=== PATIENT | female | born 1990 | race Hispanic/Latino ===

== ENCOUNTER 2019-07-21 04:06 | Emergency (ER) | payer MEDICAID, OTHER ==
[2019-07-21] MEDS ORDERED: ONDANSETRON HCL 4 MG/2 ML VIAL ONE (04:25)
[2019-07-21] MEDS ORDERED: SODIUM CHLORIDE 0.9% 1000ML 1,000 ML IV ONE ×2 (04:29→04:53)
[2019-07-21 04:35] LABS: BASOPHILS % (AUTO) 1.1 % (0.0-5.0); EOSINOPHILS % (AUTO) 0.3 % (0.0-8.0); HEMATOCRIT 41.8 % (36-48); LYMPHOCYTES % (AUTO) 28.9 % (21.0-51.0); MEAN CORPUSCULAR HEMOGLOBIN 29.7 pg (27.0-33.0); MEAN CORPUSCULAR HGB CONC 33.7 g/dL (32.0-36.0); MONOCYTES % (AUTO) 7.3 % (3.0-13.0); NEUTROPHILS % (AUTO) 62.4 % (40.0-77.0); NUCLEATED RED BLOOD CELLS 0.1 % (0.0-0.19); PLATELET COUNT (AUTO) 354 K/uL (130-400); RED BLOOD CELL COUNT(AUTO) 4.75 MIL/uL (4.00-5.50); RED CELL DISTRIBUTION WIDTH 13.3 % (11.0-15.5); WHITE BLOOD COUNT (AUTO) 8.9 K/uL (4.8-10.8)
[2019-07-21 04:44] LABS: CREATININE 0.9 mg/dL (0.5-1.5); POTASSIUM 3.3 mmol/L (3.5-5.1)
[2019-07-21 04:49] LABS: ALBUMIN 4.5 g/dL (3.5-5.0); BILIRUBIN,TOTAL 0.5 mg/dL (0.2-1.0); TOTAL PROTEIN, SERUM 8.1 g/dL (6.0-8.3)
[2019-07-21] MEDS ORDERED: METOCLOPRAMIDE 10 MG/2 ML VIAL ONE (04:52)
[2019-07-21] MEDS ORDERED: DiphenhydrAMINE HCL 50 MG/ML VIAL ONE (04:52)
[2019-07-21] MEDS ORDERED: FAMOTIDINE/PF 20 MG/2 ML VIAL IV ONE (04:53)
== END 2019-07-21 06:12 | disposition home or self-care (01) ==
LOC: EDH 04:06
DX: E86.9 Volume depletion, unspecified (principal); R10.13 Epigastric pain; R11.2 Nausea with vomiting, unspecified; Z90.49 Acquired absence of other specified parts of digestive tract
CPT/HCPCS: 36415; 80053; 83690; 85025; 96361; 96374; 96375; 99285; J1200; J2405; J2765; J3490; J7030 ×2

== ENCOUNTER 2020-06-10 20:12 | Emergency (ER) | payer SELFPAY ==
[2020-06-10] MEDS ORDERED: DEXAMETHASONE SOD PHOSPHATE 10MG/ML 1ML VIAL ONE (20:52)
[2020-06-10] MEDS ORDERED: KETOROLAC TROMETHAMINE 30MG/ML ONE (20:52)
== END 2020-06-10 23:09 ==
LOC: EDH 20:12
DX: R10.32 Left lower quadrant pain (principal); Z90.49 Acquired absence of other specified parts of digestive tract; Z72.0 Tobacco use
CPT/HCPCS: 36415; 74176; 80053; 81003; 81025; 85025; 96374; 96375; 99284; J1100; J1885

== ENCOUNTER 2020-10-12 23:41 | Emergency (ER) | payer OTHER ==
[2020-10-13] MEDS ORDERED: KETOROLAC TROMETHAMINE 60 MG/2 ML VIAL ONE
[2020-10-13] MEDS ORDERED: L.E.T. GEL 4%/0.5%/0.18% 3ML 3 ML/SYR SYG TP ONE (00:06)
[2020-10-13] MEDS ORDERED: CEPHALEXIN 500 MG CAPSULE ONE (00:54)
[2020-10-13] MEDS ORDERED: LIDOCAINE HCL 1% 20 ML VIAL ONE (00:54)
[2020-10-13] MEDS ORDERED: NEOMY SULF/BACITRA/POLYMYXIN B 1 EACH PACKET TP ONE (01:14)
== END 2020-10-13 01:37 | disposition home or self-care (01) ==
LOC: EDH 23:41
DX: S67.195A Crushing injury of left ring finger, initial encounter (principal); F41.9 Anxiety disorder, unspecified; Z90.49 Acquired absence of other specified parts of digestive tract; W23.0XXA Caught, crushed, jammed, or pinched between moving objects, initial encounter; Y93.89 Activity, other specified; Y92.098 Other place in other non-institutional residence as the place of occurrence of the external cause; Y99.8 Other external cause status
CPT/HCPCS: 29130; 73140; 96372; 99283; J1885

== ENCOUNTER 2020-12-19 07:32 | Emergency (ER) | payer OTHER ==
[2020-12-19] MEDS ORDERED: SODIUM CHLORIDE 0.9% 1000ML 1,000 ML IV ONE (07:46)
[2020-12-19] MEDS ORDERED: ONDANSETRON HCL 4 MG/2 ML VIAL ONE (07:46)
[2020-12-19] MEDS ORDERED: MAG HYDROX/AL HYDROX/SIMETH ES 30 ML SUSP UDCUP ONE (07:49)
[2020-12-19] MEDS ORDERED: LIDOCAINE HCL 2% VISCOUS 15 ML UDCUP ONE (07:49)
[2020-12-19 07:53] LABS: BASOPHILS % (AUTO) 1.2 % (0.0-5.0); EOSINOPHILS % (AUTO) 0.9 % (0.0-8.0); HEMATOCRIT 43.5 % (36-48); LYMPHOCYTES % (AUTO) 24.5 % (21.0-51.0); MEAN CORPUSCULAR HEMOGLOBIN 29.2 pg (27.0-33.0); MEAN CORPUSCULAR HGB CONC 33.3 g/dL (32.0-36.0); MEAN CORPUSCULAR VOLUME 87.7 fL (79-99); MONOCYTES % (AUTO) 3.9 % (3.0-13.0); NEUTROPHILS % (AUTO) 69.2 % (40.0-77.0); PLATELET COUNT (AUTO) 358 K/uL (130-400); RED BLOOD CELL COUNT(AUTO) 4.96 MIL/uL (4.00-5.50); RED CELL DISTRIBUTION WIDTH 12.3 % (11.0-15.5); WHITE BLOOD COUNT (AUTO) 7.8 K/uL (4.8-10.8)
[2020-12-19 08:11] LABS: ALBUMIN 4.1 g/dL (3.5-5.0); BILIRUBIN,TOTAL 0.5 mg/dL (0.2-1.0); CREATININE 0.9 mg/dL (0.5-1.5); POTASSIUM 4.1 mmol/L (3.5-5.1); TOTAL PROTEIN, SERUM 7.9 g/dL (6.0-8.3)
[2020-12-19] MEDS ORDERED: HALOPERIDOL LACTATE 5 MG/ML VIAL ONE (10:35)
== END 2020-12-19 11:16 | disposition left against medical advice (07) ==
LOC: EDH 07:32
DX: R10.84 Generalized abdominal pain (principal); Z20.828 Contact with and (suspected) exposure to other viral communicable diseases; F41.9 Anxiety disorder, unspecified; Z72.0 Tobacco use
CPT/HCPCS: 36415; 71045; 80053; 83690; 84484; 84702; 85025; 87426; 93005; 96361; 96374; 96375; 99285; J1630; J2405; J7030; 81001

== ENCOUNTER 2021-05-23 13:07 | Emergency (ER) | payer OTHER ==
[~2021-05-23] VITALS: Ht 165.1 cm; Wt 104.3 kg
[2021-05-23 13:08] VITALS: BP 99/68
[2021-05-23] MEDS ORDERED: LIDOCAINE HCL 2% VISCOUS 15 ML UDCUP PO ONE (13:45)
[2021-05-23] MEDS ORDERED: FAMOTIDINE 20MG VIAL IV ONE (13:45)
[2021-05-23] MEDS ORDERED: ONDANSETRON 4MG INJ IVP ONE (13:45)
[2021-05-23 14:00] LABS: BASOPHILS % (AUTO) 0.7 % (0.0-5.0); HEMATOCRIT 38.8 % (36-48); LYMPHOCYTES % (AUTO) 20.6 % (21.0-51.0); MEAN CORPUSCULAR HGB CONC 31.7 g/dL (32.0-36.0); MEAN CORPUSCULAR VOLUME 88.4 fL (79-99); MONOCYTES % (AUTO) 6.5 % (3.0-13.0); NEUTROPHILS % (AUTO) 67.7 % (40.0-77.0); PLATELET COUNT (AUTO) 280 K/uL (130-400); RED BLOOD CELL COUNT(AUTO) 4.39 MIL/uL (4.00-5.50); RED CELL DISTRIBUTION WIDTH 13.1 % (11.0-15.5)
[2021-05-23 14:09] LABS: CREATININE 0.8 mg/dL (0.5-1.5)
[2021-05-23 14:14] LABS: ALBUMIN 3.5 g/dL (3.5-5.0); BILIRUBIN,TOTAL 0.5 mg/dL (0.2-1.0); TOTAL PROTEIN, SERUM 6.6 g/dL (6.0-8.3)
[2021-05-23] MEDS ORDERED: MAG/ALUM/SIMETH 30 ML UDCUP ONE (14:22)
[2021-05-23 14:39] LABS: APPEARANCE,URINE Clear (CLEAR); BILIRUBIN,URINE Negative (NEGATIVE); COLOR,URINE Yellow (YELLOW); GLUCOSE, URINE (UA) Negative (NEGATIVE); KETONES,URINE Negative (NEGATIVE); LEUKOCYTE ESTERASE ,URINE Negative (NEGATIVE); NITRATE,URINE Negative (NEGATIVE); OCCULT BLOOD,URINE Moderate (NEGATIVE); PH,URINE 6.5 (5.0-8.0); PROTEIN,URINE Negative (NEGATIVE)
[2021-05-23 14:50] LABS: RBC,URINE 0-1 /HPF (0-1); WBC,URINE 0-1 /HPF (0-1)
[2021-05-23 14:51] LABS: BACTERIA,URINE Rare /HPF (None Seen); SQUAMOUS EPITHELIAL CELL,UR Few /HPF (0-2)
[2021-05-23 14:57] VITALS: BP 109/51
[2021-05-23 15:04] LABS: HCG,QUAL RESULT NEGATIVE (NEGATIVE)
[2021-05-23] MEDS ORDERED: DICY20TA2 PO (17:13)
[2021-05-23] MEDS ORDERED: FAMO-136 PO (17:13)
[2021-05-23 17:16] VITALS: BP 122/63
== END 2021-05-23 17:20 | disposition home or self-care (01) ==
LOC: EDH 13:07
DX: K29.70 Gastritis, unspecified, without bleeding (principal); Z90.49 Acquired absence of other specified parts of digestive tract
CPT/HCPCS: 36415; 74176; 80053; 81001; 81025; 83690; 84484; 85025; 93005; 96374; 96375; 99285; J2405; J3490

== ENCOUNTER 2024-02-07 06:48 | Day surgery (SDC) | payer MEDICAID ==
[~2024-02-07] VITALS: Ht 165.1 cm; Wt 123.4 kg
[~2024-02-07 06:48] MED LIST: DICY20TA2 PO; FAMO-136 PO; FEXO1TAB5 PO; OMEP40CA21 PO
[2024-02-07 07:05] VITALS: BP 109/66; PULSE 68; RESP 18
[2024-02-07] MEDS: 0.9%NACL 1000ML 1,000 ML IV ONE (07:26)
[2024-02-07] MEDS ORDERED: FENTANYL CITRATE PF 50 MCG/1 ML 2ML VIAL ONE (07:55)
[2024-02-07] MEDS ORDERED: PROPOFOL 10 MG/ML 20ML VIAL IV ONE ×2 (07:55)
[2024-02-07] MEDS ORDERED: LIDOCAINE PF 100MG/5ML (2%) SYRINGE 5ML ONE (07:56)
== END 2024-02-07 08:41 | disposition home or self-care (01) ==
LOC: DAH 06:48 → ENDO 06:48
PROVIDERS: ATTEND Surgery
DX: K21.9 Gastro-esophageal reflux disease without esophagitis (principal); G47.30 Sleep apnea, unspecified; E78.5 Hyperlipidemia, unspecified; I49.8 Other specified cardiac arrhythmias; Z98.890 Other specified postprocedural states; Z90.710 Acquired absence of both cervix and uterus; Z98.891 History of uterine scar from previous surgery; Z98.51 Tubal ligation status; Z80.6 Family history of leukemia
CPT/HCPCS: 84703; 36415; 71045; 93005; 43235; J3010; J7030 ×2; J3490 ×2; A4620; A4215 ×2; A4223; A7002; A4222; A4221; A4663; A4216; A4606; J2001; J2704

== ENCOUNTER 2024-04-28 08:37 | Emergency (ER) | payer MEDICAID ==
[~2024-04-28] VITALS: Ht 165.1 cm; Wt 108.0 kg
[~2024-04-28 08:37] MED LIST changes: -DICY20TA2 PO; -FAMO-136 PO; -FEXO1TAB5 PO
[2024-04-28 09:04] LABS: APPEARANCE,URINE CLOUDY (CLEAR); BILIRUBIN,URINE 0.5 mg/dL (NEGATIVE); COLOR,URINE YELLOW (YELLOW); GLUCOSE, URINE (UA) NEGATIVE (NEGATIVE); KETONES,URINE 60 mg/dL (NEGATIVE); LEUKOCYTE ESTERASE ,URINE NEGATIVE Leu/uL (NEGATIVE); NITRATE,URINE NEGATIVE (NEGATIVE); OCCULT BLOOD,URINE NEGATIVE (NEGATIVE); PH,URINE 7.5 (5.0-8.0); PROTEIN,URINE 50 mg/dL (NEGATIVE); UROBILINOGEN,URINE 6 mg/dL (0.2-1.0)
[2024-04-28 09:10] LABS: ADD UA MICROSCOPIC YES
[2024-04-28 09:14] LABS: BACTERIA,URINE FEW /HPF (None Seen); MUCUS,URINE MANY LPF (None Seen); SQUAMOUS EPITHELIAL CELL,UR MANY /HPF (0-2)
[2024-04-28 09:23] LABS: BASOPHILS # (AUTO) 0.04 K/uL (0.00-0.20); CREATININE 0.6 mg/dL (0.5-1.0); EOSINOPHILS # (AUTO) 0.66 K/uL (0.00-0.70); EOSINOPHILS % (AUTO) 15.8 % (0.0-8.0); HEMATOCRIT 34.7 % (36-48); IMMATURE GRANULOCYTE ABSOLUTE 0.01 K/uL (0-1); LYMPHOCYTES # (AUTO) 1.7 K/uL (1.0-4.8); LYMPHOCYTES % (AUTO) 41.5 % (21.0-51.0); MEAN CORPUSCULAR HEMOGLOBIN 27.2 pg (27.0-33.0); MEAN CORPUSCULAR HGB CONC 31.7 g/dL (32.0-36.0); MEAN CORPUSCULAR VOLUME 85.9 fL (79-99); MONOCYTES # (AUTO) 0.4 K/uL (0.1-1.0); MONOCYTES % (AUTO) 10.3 % (3.0-13.0); NEUTROPHILS # (AUTO) 1.3 K/uL (1.8-7.7); NEUTROPHILS % (AUTO) 31.2 % (40.0-77.0); PLATELET COUNT (AUTO) 267 K/uL (130-400); RED BLOOD CELL COUNT(AUTO) 4.04 MIL/uL (4.00-5.50); RED CELL DISTRIBUTION WIDTH 13.8 % (11.0-15.5); WHITE BLOOD COUNT (AUTO) 4.2 K/uL (4.8-10.8)
[2024-04-28] MEDS: 0.9%NACL 1000ML 1,000 ML IV ONE (10:29)
[2024-04-28 12:27] VITALS: BP 105/58; PULSE 76; RESP 18; O2SAT 100
[2024-04-28] MEDS ORDERED: BISACODYL 10 MG SUPP.RECT RC ONE (12:30)
[2024-04-28] MEDS ORDERED: 0.9%NACL 1000ML 1,000 ML IV ONE (12:30)
== END 2024-04-28 13:48 | disposition home or self-care (01) ==
LOC: EDH 08:37
DX: K59.00 Constipation, unspecified (principal); E86.0 Dehydration; R32 Unspecified urinary incontinence; M53.3 Sacrococcygeal disorders, not elsewhere classified; R11.0 Nausea; Z90.49 Acquired absence of other specified parts of digestive tract
CPT/HCPCS: 99283; 96360; 80048; 85025; 81001; 36415; J7030

== ENCOUNTER 2024-10-15 15:09 | Emergency (ER) | payer MEDICAID ==
[~2024-10-15] VITALS: Ht 165.1 cm; Wt 81.6 kg
--- NOTE | 2024-10-15 15:18 | ERN ---
ED Note History of Present Illness Stated Complaint: RECTAL PAIN Chief Complaint: Other Problems Time Seen by MD: 15:12 Dictation: PATIENT IS A 34-YEAR-OLD FEMALE COMING IN TODAY WITH RECTAL PAIN CONSTIPATION FOR THE LAST SEVERAL DAYS. NO NAUSEA NO VOMITING NO FEVER NO CHILLS. STATES SHE IS STATUS POST A GASTRIC BYPASS BY SIX MONTHS AGO. SHE STATES SHE WENT TO A LOCAL URGENT CARE FOR THE SAME COMPLAINT, THEY DID A CT SCAN HOWEVER THEY DO NOT HAVE ANY RESULTS . SHE SAID SHE HAS SPOKEN TO DR.BARBA BOLAÑOS AND HE SUGGESTED SHE GO TO THE EMERGENCY ROOM Allergies: Coded Allergies: No Known Drug Allergies (Unverified Allergy, Unknown, 07/21/19) Home Meds Active Scripts Mesalamine (Mesalamine) 800 Mg Tablet., 1 TAB PO TID for 10 Days, #30 TAB 0 Refills Prov:PAULY LANE ELECTRONIC SCALE ASSEMBLER AND TESTER 10/15/24 Hydrocortisone Acetate (Hydrocortisone Acetate) 25 Mg Supp.rect, 1 SUPP [place] BID for 14 Days, #28 SUPP 0 Refills Prov:PAULY LANE NP 10/15/24 Reported Medications Omeprazole (Omeprazole) 40 Mg Capsule.dr, 40 MG PO DAILY, CAP 02/05/24 Past Medical History Past Medical History: No Pertinent History Surgical History: Tonsillectomy, Cholecystectomy, Other, Bariatric Surgery, C- Section Surgical History Other: GASTRIC BYPASS, TUBAL LIGATION Family History: Negative Social History: Negative History: Not Applicable RN Note Reviewed/Agreed w/PFSH: Yes Review of System Dictation CONSTITUTIONAL: NEGATIVE EXCEPT FOR HPI HEAD/FACE: NEGATIVE EXCEPT FOR HPI EENT: NEGATIVE EXCEPT FOR HPI RESPIRATORY: NEGATIVE EXCEPT FOR HPI GASTROINTESTINAL/ABDOMINAL: NEGATIVE EXCEPT FOR HPI RECTAL PAIN GENITOURINARY: NEGATIVE EXCEPT FOR HPI MUSCULOSKELETAL: NEGATIVE EXCEPT FOR HPI INTEGUMENTARY: NEGATIVE EXCEPT FOR HPI NEUROLOGICAL/PSYCH: NEGATIVE EXCEPT FOR HPI HEMATOLOGIC/LYMPHATIC: NEGATIVE EXCEPT FOR HPI ALL SYSTEMS NEGATIVE, EXCEPT NOTED ABOVE. 13 POINT REVIEW OF SYSTEMS ASSESSED AND ALL NEGATIVE EXCEPT FOR ABOVE. Initial Vital Sign VS Vital Signs Date Time Temp Pulse Resp B/P (MAP) Pulse Ox O2 Delivery O2 Flow Rate FiO2 10/15/24 15:12 98.8 100 18 157/86 98 10/15/24 18:40 Room Air* 0 21 Physical Exam Dictation VITAL SIGNS REVIEWED LONDON MCGOVERN IN ROOM WITH THE EXAM GENERAL APPEARANCE: ALERT, ORIENTED X 3, MILD ACUTE DISTRESS, WELL DEVELOPED, NOURISHED. HEAD AND FACE: NON-TRAUMATIC. EYES: PERRL, PINK CONJUNCTIVAS, EYELID NO TRAUMA, ANTERIOR CHAMBER WITH ARCUS SENILIS. EARS: PINNAS INTACT AND NO SIGNS OF TRAUMA OR ERYTHEMA EAR CANALS CLEAR AND NO DISCHARGE TM NO ERYTHEMA NOSE: NO DISCHARGE, NO BLEEDING. OROPHARYNX: MOUTH NORMAL, TONGUE PINK, PHARYNX CLEAR,NO ERYTHEMA, TONSILS NO EXUDATES, NO ABSCESSES NOTED, MUCOUS MEMBRANE MOIST NECK: SUPPLE, NON-TENDER, NO THYROMEGALY, NO MASSES, NO JVD, NO BRUITS BREAST:DEFERRED CHEST:NO TENDERNESS, NO CREPITUS, NO PARADOXICAL MOVEMENT, NO RETRACTIONS LUNGS:CLEAR, WELL-VENTILATED, SYMMETRIC, NO RALES, NO WHEEZING, NO RHONCHI, NO STRIDOR, GOOD BREATH SOUNDS BILATERALLY HEART: REGULAR RATE, REGULAR RHYTHM, NO MURMUR, NO GALLOPS VASCULAR: NO PERIPHERAL EDEMA, ABDOMEN: SOFT, POSITIVE BOWEL SOUNDS, NONDISTENDED, NO GUARDING, NONTENDER, NO REBOUND, NO MASSES NO HEPATOMEGALY, NO SPLENOMEGALY, NO CRUZ'S SIGN, NO HERNIAS. RECTAL: SMALL EXTERNAL HEMORRHOID, NO THROMBOSIS NORMAL TONE NO STOOL IN THE VAULT. PATIENT DESCRIBES EXAM BURNING. GENITAL: DEFERRED NEUROLOGICAL: NORMAL SPEECH, MOTOR FUNCTION INTACT, SENSORY FUNCTION INTACT MUSCULOSKELETAL: NECK NONTENDER, FULL RANGE OF MOTION, BACK NONTENDER, FULL RANGE OF MOTION, EXTREMITIES: NONTENDER, FULL RANGE OF MOTION SKIN: COLOR PINK, DRY, NO TURGOR, NO RASH, NO LACERATIONS, NO ABRASIONS, NO CONTUSIONS. LYMPHATIC: DEFERRED Results (Laboratory/Radiology) Laboratory/Radiology Laboratory Tests Test 10/15/24 15:57 10/15/24 16:31 White Blood Count 6.5 K/uL (4.8-10.8) Red Blood Count 4.80 MIL/uL (4.00-5.50) Hemoglobin 12.0 g/dL (12.0-16.0) Hematocrit 38.6 % (36-48) Mean Corpuscular Volume 80.4 fL (79-99) Mean Corpuscular Hemoglobin 25.0 pg (27.0-33.0) L Mean Corpuscular Hemoglobin Concent 31.1 g/dL (32.0-36.0) L Red Cell Distribution Width 14.8 % (11.0-15.5) Platelet Count 312 K/uL (130-400) Mean Platelet Volume 10.4 fL (7.5-10.5) Immature Granulocyte % (Auto) 0.3 % (0-1) Neutrophils (%) (Auto) 52.0 % (40.0-77.0) Lymphocytes (%) (Auto) 36.5 % (21.0-51.0) Monocytes (%) (Auto) 6.0 % (3.0-13.0) Eosinophils (%) (Auto) 4.3 % (0.0-8.0) Basophils (%) (Auto) 0.9 % (0.0-5.0) Neutrophils # (Auto) 3.4 K/uL (1.8-7.7) Lymphocytes # (Auto) 2.4 K/uL (1.0-4.8) Monocytes # (Auto) 0.4 K/uL (0.1-1.0) Eosinophils # (Auto) 0.28 K/uL (0.00-0.70) Basophils # (Auto) 0.06 K/uL (0.00-0.20) Absolute Immature Granulocyte (auto 0.02 K/uL (0-1) Nucleated Red Blood Cells 0.0 % (0.0-0.19) Red Blood Cell Morphology See comments Sodium Level 142 mmol/L (136-145) Potassium Level 3.8 mmol/L (3.5-5.1) Chloride Level 103 mmol/L (101-111) Carbon Dioxide Level 31 mmol/L (21-32) Blood Urea Nitrogen 9 mg/dL (7-18) Creatinine 0.7 mg/dL (0.5-1.0) Glomerular Filtration Rate Calc 116 mL/min (>90) Random Glucose 105 mg/dL (70-105) Total Calcium 9.2 mg/dL (8.5-10.1) Lipase 25 U/L (16-77) Urine Color YELLOW (YELLOW) Urine Appearance CLOUDY (CLEAR) H Urine pH 5.5 (5.0-8.0) Urine Specific [place] 1.035 (1.001-1.031) Urine Protein 30 mg/dL (NEGATIVE) H Urine Glucose (UA) NEGATIVE mg/dL (NEGATIVE) Urine Ketones 10 mg/dL (NEGATIVE) H Urine Occult Blood NEGATIVE (NEGATIVE) Urine Nitrate NEGATIVE (NEGATIVE) Urine Bilirubin NEGATIVE mg/dL (NEGATIVE) Urine Urobilinogen 2.0 mg/dL (0.2-1.0) H Urine Leukocyte Esterase NEGATIVE Shannon/uL Urine RBC 2-5 /HPF (0-1) H Urine WBC 2-5 /HPF (0-1) H Urine Squamous Epithelial Cells MANY /HPF (0-2) Urine Bacteria RARE /HPF (None Seen) Urine HCG, Qualitative NEGATIVE (NEGATIVE) ABDOMEN/PELVIS W/CONTRAST CLINICAL HISTORY: PELVIC/RECTAL PAIN. HISTORY OF GASTRIC BYPASS COMPARISON: None TECHNIQUE: Sequential axial images of abdomen and pelvis with 75 mL of Omnipaque 350 IV contrast with sagittal and coronal reconstructions. CT was performed with one or more of the following dose reduction techniques: automated exposure control, adjustment of the mA and/or kV according to patient size, or use of iterative reconstruction technique. FINDINGS: The lung bases are clear. Liver and spleen are unremarkable. No significant change prior gastric bypass surgery with no identified bowel obstruction. There is no bulky abdominal or retroperitoneal lymphadenopathy. There is no free air or free fluid. The appendix is normal. The gallbladder is surgically absent. The pancreas and adrenal glands are unremarkable. The kidneys and bladder are within normal limits. The bony structures are unremarkable. IMPRESSION: Change prior gastric bypass surgery. There is no identified bowel obstruction or perirectal stranding. Labs Reviewed?: Yes ED Course ED Course Orders Procedure Category Date Status Time Cbc With Differential LAB 10/15/24 Complete 15:14 ,Urine Test LAB 10/15/24 Complete 15:14 Urinalysis Profile LAB 10/15/24 Complete 15:14 Ct Abdomen/Pelvis CT 10/15/24 Resulted W/Contrast 15:14 Lipase LAB 10/15/24 Complete 15:14 Basic Metabolic Panel LAB 10/15/24 Complete 15:14 Iohexol (Omnipaque) PHA 10/15/24 Complete 15:47 Methylprednisolone PHA 10/15/24 Complete Succ 125mg (Solu-Medr 18:30 Current Medications Medications (Trade) Dose Ordered Sig/Carlos Enrique Route PRN Reason Start Time Stop Time Status Last Admin Dose Admin Iohexol (Omnipaque) 75 ml STK-MED ONCE IV 10/15/24 15:47 10/15/24 15:52 DC Methylprednisolone Sodium Succinate (Solu-medROL 125MG) 125 mg ONCE ONCE IVP 10/15/24 18:30 11/17/24 18:31 DC 10/15/24 18:38 Vital Signs Date Time Temp Pulse Resp B/P (MAP) Pulse Ox O2 Delivery O2 Flow Rate FiO2 10/15/24 18:40 98.8 95 18 149/78 98 Room Air* 0 21 10/15/24 15:12 98.8 100 18 157/86 98 Medical Decision Making MDM MDM: DIFFERENTIAL DIAGNOSIS: RECTAL PROLAPSE/HEMORRHOID/THROMBOSED HEMORRHOID/PROPTOSIS/ELECTROLYTE IMBALANCE/DEHYDRATION/UTI RATIONALE: TESTS CONSIDERED AND ORDERED SECONDARY TO SHARED DECISION MAKING INCLUDE: RADIOLOGIST/LABS PREVIOUS OUTSIDE RECORDS REVIEWED: OLD ER VISITS. REVIEWED RISK OF COMPLICATION AND/OR MORBIDITY OR MORTALITY OF PATIENT MANAGEMENT: NONE MEDICATIONS-PER MEDICATION RECONCILIATION SEE NURSE'S NOTES NEED FOR HOSPITALIZATION: PATIENT DOES NOT MEET CRITERIA FOR HOSPITALIZATION. NO NEED FOR EMERGENCY MAJOR/MINOR SURGERY: NO THERE ARE NO SOCIAL CONCERNS WITH THIS PATIENT. PRESCRIPTION DRUG MANAGEMENT MESALAMINE/HYDROCORTISONE SUPPOSITORIES PRESCRIPTIONS WILL INCLUDE SYMPTOMATIC CARE PATIENT'S PRIOR EXTERNAL MEDICAL RECORDS FROM OTHER ER VISITS WERE REVIEWED BY ME INDICATED. PRIOR TESTING AND RESULTS FROM PREVIOUS VISITS WERE REVIEWED. PRIOR TESTS WERE TAKEN INTO ACCOUNT WITH MEDICAL DECISION MAKING AND RESOURCE UTILIZATION, INDEPENDENT HISTORIAN/HISTORIANS WERE USED TO OBTAIN COMPLETE MEDICAL HISTORY. I INDEPENDENTLY INTERPRETED THE TEST THAT WERE PERFORMED, RESULTS WERE REVIEWED BY ME AND CONSIDERED FINDINGS ON RADIOLOGY IF ORDERED. MEDICAL MANAGEMENT AND EXAMINATION INTERPRETATION DISCUSSIONS WERE HAD BY ME WIT H OTHER QUALIFIED HEALTHCARE PROFESSIONALS INDICATED FOR THE PATIENT'S CARE. DX & DISP Disposition: Discharge Departure Impression: Primary Impression: Acute proctitis Additional Impression: External hemorrhoid Condition: Stable Scripts Mesalamine (Mesalamine) 800 Mg Tablet.dr 1 TAB PO TID for 10 Days, #30 TAB 0 Refills Prov: PAULY LANE ELECTRONIC SCALE ASSEMBLER AND TESTER 10/15/24 Hydrocortisone Acetate (Hydrocortisone Acetate) 25 Mg Supp.rect 1 SUPP [place] BID for 14 Days, #28 SUPP 0 Refills Prov: PAULY LANE ELECTRONIC SCALE ASSEMBLER AND TESTER 10/15/24 Additional Instructions: FOLLOW-UP WITH PRIMARY CARE PROVIDER IN 1 TO 2 DAYS. TAKE MEDICATIONS DIRECTED HERE IN THE EMERGENCY ROOM. OKAY TO CONTINUE HOME MEDICATIONS UNLESS OTHERWISE DISCUSSED DURING YOUR VISIT IN THE EMERGENCY ROOM TODAY. RETURN TO YOUR NEAREST EMERGENCY ROOM IF SYMPTOMS WORSEN OR IF THERE IS NO IMPROVEMENT. CALL 911 IF YOU NEED IMMEDIATE ASSISTANCE. TAKE TYLENOL OR MOTRIN [id number] NEEDED AND IF NO CONTRAINDICATIONS ARE PRESENT. INCREASE ORAL HYDRATION. A WOUND CULTURE OR URINE CULTURE WAS ORDERED HERE IN THE EMERGENCY ROOM DEPARTMENT PLEASE FOLLOW-UP WITH PRIMARY CARE PROVIDER AND ADVISE THEM TO GET REPEAT PORTS FROM OUR FACILITY. IF YOU HAD ANY HIRA WRAP/SPLINTS THAT WERE APPLIED HERE, PLEASE DO NOT REMOVE THEM UNTIL YOU SEE YOUR PRIMARY CARE OR SPECIALTY. TAKE MESALAMINE DIRECTED UNTIL GONE. USE HYDROCORTISONE SUPPOSITORIES TWICE A DAY DIRECTED. INCREASE YOUR WATER INTAKE AND FOLLOW UP WITH YOUR OPERATIONS REPRESENTATIVE IN THE NEXT SEVERAL DAYS FOR MANAGEMENT Referrals: ROSIE HEARN MD (PCP) Time of Disposition: 18:15 I have reviewed the case, and I agree with, Diagnosis and Plan ATTESTATION BY PHYSICIAN I PERFORMED THE SUBSTANTIVE PORTION OF THE VISIT. I HAVE REVIEWED AND PERSONALLY MADE AND APPROVED THE MANAGEMENT PLAN THAT IS DOCUMENTED IN THE NOTE BY MYSELF FOR THE A PP. I ACKNOWLEDGED FOR RESPONSIBILITY FOR THE PATIENT'S MANAGEMENT PLAN. PAULY LANE NP Oct 15, 2024 15:18 MARICRUZ FLORES MD Oct 15, 2024 18:51
--- NOTE | 2024-10-15 15:22 | NUR ---
PENDING GFR, TEST RESULTS, IV SITE, & CONSENT FOR CT EXAM. PATIENT IN ER LOBBY.
[2024-10-15] MEDS ORDERED: IOHEXOL-350 75 ML VIAL IV ONE (15:47)
[2024-10-15 16:04] LABS: BASOPHILS # (AUTO) 0.06 K/uL (0.00-0.20); BASOPHILS % (AUTO) 0.9 % (0.0-5.0); EOSINOPHILS # (AUTO) 0.28 K/uL (0.00-0.70); EOSINOPHILS % (AUTO) 4.3 % (0.0-8.0); HEMATOCRIT 38.6 % (36-48); IMMATURE GRANULOCYTE ABSOLUTE 0.02 K/uL (0-1); LYMPHOCYTES # (AUTO) 2.4 K/uL (1.0-4.8); LYMPHOCYTES % (AUTO) 36.5 % (21.0-51.0); MEAN CORPUSCULAR HGB CONC 31.1 g/dL (32.0-36.0); MEAN CORPUSCULAR VOLUME 80.4 fL (79-99); MONOCYTES # (AUTO) 0.4 K/uL (0.1-1.0); NEUTROPHILS # (AUTO) 3.4 K/uL (1.8-7.7); PLATELET COUNT (AUTO) 312 K/uL (130-400); RED CELL DISTRIBUTION WIDTH 14.8 % (11.0-15.5); WHITE BLOOD COUNT (AUTO) 6.5 K/uL (4.8-10.8)
[2024-10-15 16:12] LABS: CREATININE 0.7 mg/dL (0.5-1.0); POTASSIUM 3.8 mmol/L (3.5-5.1)
[2024-10-15 17:15] LABS: APPEARANCE,URINE CLOUDY (CLEAR); BILIRUBIN,URINE NEGATIVE (NEGATIVE); COLOR,URINE YELLOW (YELLOW); GLUCOSE, URINE (UA) NEGATIVE (NEGATIVE); KETONES,URINE 10 mg/dL (NEGATIVE); LEUKOCYTE ESTERASE ,URINE NEGATIVE Leu/uL (NEGATIVE); NITRATE,URINE NEGATIVE (NEGATIVE); OCCULT BLOOD,URINE NEGATIVE (NEGATIVE); PH,URINE 5.5 (5.0-8.0); PROTEIN,URINE 30 mg/dL (NEGATIVE)
[2024-10-15 17:20] LABS: HCG,QUALITATIVE URINE NEGATIVE (NEGATIVE)
[2024-10-15 17:22] LABS: ADD UA MICROSCOPIC YES
[2024-10-15 17:23] LABS: BACTERIA,URINE RARE /HPF (None Seen); MUCUS,URINE MANY LPF (None Seen); SQUAMOUS EPITHELIAL CELL,UR MANY /HPF (0-2)
--- NOTE | 2024-10-15 17:42 | HMCIMG ---
CT ABDOMEN/PELVIS W/CONTRAST CLINICAL HISTORY: PELVIC/RECTAL PAIN. HISTORY OF GASTRIC BYPASS COMPARISON: None TECHNIQUE: Sequential axial images of abdomen and pelvis with 75 mL of Omnipaque 350 IV contrast with sagittal and coronal reconstructions. CT was performed with one or more of the following dose reduction techniques: automated exposure control, adjustment of the mA and/or kV according to patient size, or use of iterative reconstruction technique. FINDINGS: The lung bases are clear. Liver and spleen are unremarkable. No significant change prior gastric bypass surgery with no identified bowel obstruction. There is no bulky abdominal or retroperitoneal lymphadenopathy. There is no free air or free fluid. The appendix is normal. The gallbladder is surgically absent. The pancreas and adrenal glands are unremarkable. The kidneys and bladder are within normal limits. The bony structures are unremarkable. IMPRESSION: Change prior gastric bypass surgery. There is no identified bowel obstruction or perirectal stranding.
[2024-10-15] MEDS ORDERED: HYDR25SU7 PR (18:17)
[2024-10-15] MEDS ORDERED: MESA800T9 PO (18:17)
[2024-10-15] MEDS: Solu-medROL 125MG VIAL IVP ONE (18:38)
[2024-10-15 18:40] VITALS: BP 149/78; PULSE 95; RESP 18; TEMP 98.8; O2SAT 98
== END 2024-10-15 19:09 | disposition home or self-care (01) ==
LOC: EDH 15:09
DX: K62.89 Other specified diseases of anus and rectum (principal); K64.4 Residual hemorrhoidal skin tags; Z79.899 Other long term (current) drug therapy; Z90.49 Acquired absence of other specified parts of digestive tract; Z90.89 Acquired absence of other organs; Z98.51 Tubal ligation status; Z98.84 Bariatric surgery status
CPT/HCPCS: 99285; 74177; 96374; 80048; 83690; 85025; 81001; 81025; 36415; J2919; Q9967

== ENCOUNTER 2025-05-26 01:16 | Emergency (ER) | payer MEDICAID ==
[~2025-05-26] VITALS: Ht 165.1 cm; Wt 61.2 kg
[~2025-05-26 01:16] MED LIST changes: +HYDR25SU7 PR; +MESA800T9 PO
[2025-05-26 01:46] VITALS: BP 120/66; PULSE 88; RESP 18; TEMP 98.1; O2SAT 99
[2025-05-26] MEDS: ondanSETRON 4MG INJ ONE (01:59)
--- NOTE | 2025-05-26 01:59 | ERN ---
ED Note History of Present Illness Stated Complaint: ABD PAIN Chief Complaint: Abdominal Pain Time Seen by MD: 01:23 Time Seen by Midlevel: 01:23 Dictation: The patient is a 24-year-old female with a history of gastric bypass a year ago, cholecystectomy, , tubal ligation who presents to the emergency department with complaints of epigastric pain onset5 hours ago associated with nausea. Patient denies any constipation, diarrhea, vomiting. Patient reports she was just at an urgent care with a did a CT abdomen pelvis with showed large amount of fecal material in the colon but patient left AMA. Allergies: Coded Allergies: No Known Drug Allergies (Unverified Allergy, Unknown, 07/21/19) Home Meds Active Scripts Mesalamine (Mesalamine) 800 Mg Tablet.dr, 1 TAB PO TID for 10 Days, #30 TAB 0 Refills Prov:PAULY LANE HEAD START COORDINATOR 10/15/24 Hydrocortisone Acetate (Hydrocortisone Acetate) 25 Mg Supp.rect, 1 SUPP IN BID for 14 Days, #28 SUPP 0 Refills Prov:PAULY LANE HEAD START COORDINATOR 10/15/24 Reported Medications Omeprazole (Omeprazole) 40 Mg Capsule.dr, 40 MG PO DAILY, CAP 02/05/24 Past Medical History Past Medical History: No Pertinent History Surgical History: Other Surgical History Other: GASTRIC BYPASS Family History: Negative Social History: Negative History: Not Applicable LMP: May 22, 2025 RN Note Reviewed/Agreed w/PFSH: Yes Review of System Dictation Constitutional: Negative for fever,chills, and weight loss Eyes: Negative for injury, pain,redness, and discharge ENT: Negative for injury,pain or swelling Cardiovascular: Negative for chest pain, palpitations, and edema Respiratory: Negative for shortness of breath, cough, and wheezing, Abdomen/GI: Negative for vomiting, diarrhea, and constipation positive for abdominal pain, nausea Back: Negative for injury and pain : Negative for injury, bleeding and discharge MS/Extremity: Negative for injury and deformity Skin: Negative for rash, and discoloration Neuro: Negative for headache, weakness, numbness, tingling, and seizure Psych: Negative for suicide ideation, homicidal ideation, and hallucinations Initial Vital Sign VS Vital Signs Date Time Temp Pulse Resp B/P (MAP) Pulse Ox O2 Delivery O2 Flow Rate FiO2 05/26/25 01:18 98.4 105 20 124/78 99 Room Air 0 05/26/25 01:46 21 Physical Exam Dictation Vital Signs reviewed General Appearance: Alert, oriented x 3, no acute distress, well developed, nourished. Head and Face: non-traumatic. Eyes: PERRL, pink conjunctivas, eyelid no trauma, anterior chamber with arcus senilis. Ears: Pinnas intact and no signs of trauma or erythema ear canals clear and no discharge TM no erythema Nose: No discharge, no bleeding. Oropharynx: Mouth normal, tongue pink. pharynx clear,no erythema, tonsils no exudates, no abscesses noted, mucous membrane moist Neck: Supple, non-tender, no thyromegaly, no masses, no JVD, no bruits Breast:Deferred Chest:No tenderness, no crepitus, no paradoxical movement, no retractions Lungs:Clear, well-ventilated, symmetric, no rales, no wheezing, no rhonchi, no stridor, good breath sounds bilaterally Heart: Regular rate, regular rhythm, no murmur, no gallops Vascular: no peripheral edema, Abdomen: Soft, positive bowel sounds, nondistended, no guarding, nontender, no rebound, no masses no hepatomegaly, no splenomegaly, no Pretty's sign, no hernias. Rectal: Deferred Genital: Deferred Neurological: Normal speech, motor function intact, sensory function intact Musculoskeletal: Neck nontender, full range of motion, back nontender, full range of motion, Extremities: nontender, full range of motion Skin: Color pink, dry, no turgor, no rash, no lacerations, no abrasions, no contusions. Lymphatic: Deferred Results (Laboratory/Radiology) Laboratory/Radiology Laboratory Tests Test 05/26/25 01:39 White Blood Count 6.9 K/uL (4.8-10.8) Red Blood Count 4.54 MIL/uL (4.00-5.50) Hemoglobin 11.4 g/dL (12.0-16.0) L Hematocrit 35.8 % (36-48) L Mean Corpuscular Volume 78.9 fL (79-99) L Mean Corpuscular Hemoglobin 25.1 pg (27.0-33.0) L Mean Corpuscular Hemoglobin Concent 31.8 g/dL (32.0-36.0) L Red Cell Distribution Width 17.1 % (11.0-15.5) H Platelet Count 356 K/uL (130-400) Mean Platelet Volume 10.4 fL (7.5-10.5) Immature Granulocyte % (Auto) 0.1 % (0-1) Neutrophils (%) (Auto) 48.1 % (40.0-77.0) Lymphocytes (%) (Auto) 44.6 % (21.0-51.0) Monocytes (%) (Auto) 5.2 % (3.0-13.0) Eosinophils (%) (Auto) 1.0 % (0.0-8.0) Basophils (%) (Auto) 1.0 % (0.0-5.0) Neutrophils # (Auto) 3.3 K/uL (1.8-7.7) Lymphocytes # (Auto) 3.1 K/uL (1.0-4.8) Monocytes # (Auto) 0.4 K/uL (0.1-1.0) Eosinophils # (Auto) 0.07 K/uL (0.00-0.70) Basophils # (Auto) 0.07 K/uL (0.00-0.20) Absolute Immature Granulocyte (auto 0.01 K/uL (0-1) Nucleated Red Blood Cells 0.0 % (0.0-0.19) Sodium Level 137 mmol/L (136-145) Potassium Level 4.0 mmol/L (3.5-5.1) Chloride Level 98 mmol/L (101-111) L Carbon Dioxide Level 25 mmol/L (21-32) Blood Urea Nitrogen 12 mg/dL (7-18) Creatinine 0.6 mg/dL (0.5-1.0) Glomerular Filtration Rate Calc 121 mL/min (>90) Random Glucose 93 mg/dL (70-105) Total Calcium 9.7 mg/dL (8.5-10.1) Total Bilirubin 1.0 mg/dL (0.2-1.0) Direct Bilirubin 0.2 mg/dL (0.0-0.3) Aspartate Amino Transf (AST/SGOT) 25 U/L (10-37) Alanine Aminotransferase (ALT/SGPT) 22 U/L (12-78) Alkaline Phosphatase 65 U/L (50-136) Total Protein 7.9 g/dL (6.0-8.3) Albumin 4.5 g/dL (3.5-5.0) Lipase 27 U/L (16-77) Labs Reviewed?: Yes ED Course ED Course Orders Procedure Category Date Status Time Ondansetron 4mg Inj PHA 05/26/25 Complete (Zofran 4mg Inj) 01:43 Cbc With Differential LAB 05/26/25 Complete 01:52 ,Urine Test LAB 05/26/25 In Process 01:52 Urinalysis Profile LAB 05/26/25 In Process 01:52 Ondansetron 4mg Inj PHA 05/26/25 Complete (Zofran 4mg Inj) 02:00 Lidocaine Hcl 2% PHA 05/26/25 Complete Viscous (Lidocaine Hcl 02:00 Mag/Alum/Simeth 30ml PHA 05/26/25 Complete (Maalox Plus 30ml) 02:00 Dicyclomine Hcl PHA 05/26/25 Complete (Bentyl 10mg/5ml 02:00 Lipase LAB 05/26/25 Complete 01:52 Basic Metabolic Panel LAB 05/26/25 Complete 01:52 M.V.I. Iv [Adult] PHA 05/26/25 In Process (M.V.I. Iv [Adult])... 03:00 Hepatic Function Panel LAB 05/26/25 Complete 01:52 Current Medications Medications (Trade) Dose Ordered Sig/Carlos Enrique Route PRN Reason Start Time Stop Time Status Last Admin Dose Admin Al Hydroxide/Mg Hydroxide (MAALox PLUS 30ML) 30 ml ONCE ONCE PO 05/26/25 02:00 05/26/25 02:01 DC 05/26/25 02:05 Dicyclomine HCl (Bentyl 10mg/5ml Syrup) 10 mg ONCE ONCE PO 05/26/25 02:00 05/26/25 02:01 DC 05/26/25 02:05 Lidocaine HCl (Lidocaine HCl 2% Viscous) 10 ml ONCE ONCE PO 05/26/25 02:00 05/26/25 02:01 DC 05/26/25 02:05 Multivitamins/ Minerals 10 ml/ Folic Acid 1 mg/ Thiamine HCl 100 mg/Sodium Chloride 1,010 ml @ 101 mls/hr Q24H IV 05/26/25 03:00 06/25/25 02:59 05/26/25 02:37 Ondansetron HCl (zoFRAN 4MG INJ) 4 mg ONCE ONCE IVP 05/26/25 02:00 05/26/25 02:01 DC 05/26/25 02:05 Ondansetron HCl (zoFRAN 4MG INJ) 4 mg STK-MED ONCE .ROUTE 05/26/25 01:43 05/26/25 01:43 DC Vital Signs Date Time Temp Pulse Resp B/P (MAP) Pulse Ox O2 Delivery O2 Flow Rate FiO2 05/26/25 01:46 98.1 88 18 120/66 99 Room Air* 0 21 05/26/25 01:18 98.4 105 20 124/78 99 Room Air 0 Medical Decision Making MDM The patient is a 24-year-old female with a history of gastric bypass a year ago, cholecystectomy, , tubal ligation who presents to the emergency department with complaints of epigastric pain onset5 hours ago associated with nausea. Patient denies any constipation, diarrhea, vomiting. Patient reports she was just at an urgent care with a did a CT abdomen pelvis with showed large amount of fecal material in the colon but patient left AMA. CBC CBC showed no leukocytosis, no anemia, chemistry showed no electrolyte imbalance, normal renal function. Report for CT abdomen and pelvis without contrast: Impression large amounts of fecal material seen in the colon. On physical exam patient appears to be more comfortable. Reports feeling better. Patient with a non tender abdomen. In no acute distress. Patient reports she already has an appointment with her g astroenterologist. Patient instructed to follow up. Differential diagnosis: Gastritis, constipation, electrolyte imbalance, ga stroenteritis Need for hospitalization: Patient does not meet criteria for hospitalization. There are no social concerns with this patient. DX & DISP Disposition: Discharge Departure Impression: Primary Impression: Gastritis Additional Impression: Abdominal pain Condition: Stable Additional Instructions: Your labs were unremarkable. Please follow up with your ribber as soon as possible. Continue hydrating at home as tolerated. If anything worsens please return to ER. FOLLOW-UP WITH PRIMARY CARE PROVIDER IN 1 TO 2 DAYS. TAKE MEDICATIONS DIRECTED HERE IN THE EMERGENCY ROOM. OKAY TO CONTINUE HOME MEDICATIONS UNLESS OTHERWISE DISCUSSED DURING YOUR VISIT IN THE EMERGENCY ROOM TODAY. RETURN TO YOUR NEAREST EMERGENCY ROOM IF SYMPTOMS WORSEN OR IF THERE IS NO IMPROVEMENT. CALL 911 IF YOU NEED IMMEDIATE ASSISTANCE. TAKE TYLENOL [id number] NEEDED AND IF NO CONTRAINDICATIONS ARE PRESENT. INCREASE ORAL HYDRATION. A WOUND CULTURE OR URINE CULTURE WAS ORDERED HERE IN THE EMERGENCY ROOM DEPARTMENT PLEASE FOLLOW-UP WITH PRIMARY CARE PROVIDER AND ADVISE THEM TO GET REPEAT PORTS FROM OUR FACILITY. IF YOU HAD ANY HIRA WRAP/SPLINTS THAT WERE APPLIED HERE, PLEASE DO NOT REMOVE THEM UNTIL YOU SEE YOUR PRIMARY CARE OR SPECIALTY. Referrals: NOLAN JOAQUIN MD (PCP) Time of Disposition: 02:56 I have reviewed the case, and I agree with, Diagnosis and Plan AMANDA MAHAJAN [facility] May 26, 2025 01:59
[2025-05-26] MEDS: LIDOCAINE HCL 2% VISCOUS 15 ML UDCUP PO ONE (02:05)
[2025-05-26] MEDS: MAG/ALUM/SIMETH 30 ML UDCUP PO ONE (02:05)
[2025-05-26] MEDS: ondanSETRON 4MG INJ IVP ONE (02:05)
[2025-05-26] MEDS: DICYCLOMINE HCL 10 MG/5 ML ML PO ONE (02:05)
[2025-05-26 02:08] LABS: BASOPHILS # (AUTO) 0.07 K/uL (0.00-0.20); EOSINOPHILS # (AUTO) 0.07 K/uL (0.00-0.70); HEMATOCRIT 35.8 % (36-48); IMMATURE GRANULOCYTE ABSOLUTE 0.01 K/uL (0-1); LYMPHOCYTES # (AUTO) 3.1 K/uL (1.0-4.8); LYMPHOCYTES % (AUTO) 44.6 % (21.0-51.0); MEAN CORPUSCULAR HEMOGLOBIN 25.1 pg (27.0-33.0); MEAN CORPUSCULAR HGB CONC 31.8 g/dL (32.0-36.0); MEAN CORPUSCULAR VOLUME 78.9 fL (79-99); MONOCYTES # (AUTO) 0.4 K/uL (0.1-1.0); MONOCYTES % (AUTO) 5.2 % (3.0-13.0); NEUTROPHILS # (AUTO) 3.3 K/uL (1.8-7.7); NEUTROPHILS % (AUTO) 48.1 % (40.0-77.0); PLATELET COUNT (AUTO) 356 K/uL (130-400); RED BLOOD CELL COUNT(AUTO) 4.54 MIL/uL (4.00-5.50); RED CELL DISTRIBUTION WIDTH 17.1 % (11.0-15.5); WHITE BLOOD COUNT (AUTO) 6.9 K/uL (4.8-10.8)
[2025-05-26] MEDS: M.V.I. IV [ADULT] 10 ML, FOLic ACID 5 MG/ML VIAL 1 MG, THIAMINE HCL 100 MG in 0.9%NACL ... IV SCH (02:37)
[2025-05-26 02:44] LABS: CREATININE 0.6 mg/dL (0.5-1.0)
[2025-05-26 02:48] LABS: ALBUMIN 4.5 g/dL (3.5-5.0); BILIRUBIN,DIRECT 0.2 mg/dL (0.0-0.3); TOTAL PROTEIN, SERUM 7.9 g/dL (6.0-8.3)
[2025-05-26 03:06] LABS: APPEARANCE,URINE CLEAR (CLEAR); BILIRUBIN,URINE NEGATIVE (NEGATIVE); COLOR,URINE LIGHT-YELLOW (YELLOW); GLUCOSE, URINE (UA) NEGATIVE (NEGATIVE); KETONES,URINE >=80 mg/dL (NEGATIVE); LEUKOCYTE ESTERASE ,URINE NEGATIVE Leu/uL (NEGATIVE); NITRATE,URINE NEGATIVE (NEGATIVE); OCCULT BLOOD,URINE NEGATIVE (NEGATIVE); PH,URINE 7.5 (5.0-8.0); PROTEIN,URINE NEGATIVE (NEGATIVE); UROBILINOGEN,URINE 3 mg/dL (0.2-1.0)
[2025-05-26 03:07] LABS: HCG,QUALITATIVE URINE NEGATIVE (NEGATIVE)
[2025-05-26 03:28] LABS: ADD UA MICROSCOPIC YES
[2025-05-26 03:36] LABS: BACTERIA,URINE FEW /HPF (None Seen); MUCUS,URINE RARE LPF (None Seen); SQUAMOUS EPITHELIAL CELL,UR FEW /HPF (0-2); WBC,URINE 0-1 /HPF (0-1)
--- NOTE | 2025-05-26 04:11 | NUR ---
DC INSTRUCTION GIVEN TO PT PT WOULD LIKE TO FINISH HER BANANA BAG FIRST BEFORE GOING HOME
== END 2025-05-26 04:43 | disposition home or self-care (01) ==
LOC: EDH 01:16
DX: K29.70 Gastritis, unspecified, without bleeding (principal); R10.13 Epigastric pain; Z79.899 Other long term (current) drug therapy; Z98.84 Bariatric surgery status
CPT/HCPCS: 99284; 96365; 96375; 80076; 80048; 83690; 85025; 81001; 81025; 36415; J7030; J3411; J2405; J3490

== ENCOUNTER 2025-08-22 21:14 | Emergency (ER) | payer MEDICAID ==
[~2025-08-22] VITALS: Ht 165.1 cm; Wt 49.9 kg
[~2025-08-22 21:14] MED LIST changes: +DICY-20 PO; +HYDR-3421 PO; -HYDR25SU7 PR; +LEVO25TA9 PO; -MESA800T9 PO; +METO10TA3 PO; +VITA-16 PO
[2025-08-22 22:09] LABS: IMMATURE GRANULOCYTE ABSOLUTE 0.01 K/uL (0-1); NUCLEATED RED BLOOD CELLS 0.0 % (0.0-0.19); PLATELET COUNT (AUTO) 267 K/uL (130-400); RED BLOOD CELL COUNT(AUTO) 4.43 MIL/uL (4.00-5.50); RED CELL DISTRIBUTION WIDTH 18.1 % (11.0-15.5); WHITE BLOOD COUNT (AUTO) 7.0 K/uL (4.8-10.8)
[2025-08-22 22:17] LABS: CREATININE 0.6 mg/dL (0.5-1.0); GLOMERULAR FILTR. RATE CALC 121.0 mL/min (>90); GLUCOSE,RANDOM 62.0 mg/dL (70-105); SODIUM SERUM 137.0 mmol/L (136-145); UREA NITROGEN, BLOOD 10.0 mg/dL (7-18)
[2025-08-22 23:19] VITALS: BP 126/75; PULSE 82; RESP 18; TEMP 98.2; O2SAT 99
--- NOTE | 2025-08-22 23:21 | ERN ---
ED Note History of Present Illness Stated Complaint: C/O REDNESS,RASH, RED SPOTS TO BODY Chief Complaint: Skin Rash/Abscess Time Seen by MD: 21:17 Dictation: This is a 34-year-old female who presents to the emergency room with complaints of red spots on the lower extremities and at times hyperpigmented patches off and on. There is no itching. No fever chills or rigors no arthralgias. She started noticing these in the past few months. She stated that she underwent a bariatric [id number] gastric bypass by Dr. Nevarez 14 months ago. Patient was 278 lb prior to surgery and has a lost significant amount of weight. She is also anemic and gets iron infusions. Dr. Owen has been concerned about her progressive weight loss and there was a discussion about possibly reversing her gastric bypass. Patient also has been hypoglycemic off and on. She indicated to me that she takes bariatric vitamins from a special website. She was also treated with steroids . Temperature 98.2 pulse 94 respirations 24 blood pressure 127/79 with a pulse oximetry of 100% on room air Allergies: Coded Allergies: piperacillin (Unverified Allergy, Severe, ANAPHYLAXIS, 08/04/25) tazobactam (Unverified Allergy, Severe, ANAPHYLAXIS, 08/04/25) No Known Drug Allergies (Unverified Allergy, Unknown, 07/21/19) Home Meds Active Scripts Vitamin B Complex/Folic Acid (Vitamin B Complex Tablet) 0.4 Mg Tablet, 1 TAB PO DAILY for 30 Days, #30 TAB 0 Refills Prov:JENIFFER SELLERS NP 08/06/25 Levothyroxine Sodium (Synthroid 25 Mcg Tab) 25 Mcg Tablet, 25 MCG PO SYN for 30 Days, #30 TAB Prov:JENIFFER SELLERS NP 08/06/25 Reported Medications Omeprazole (Omeprazole) 40 Mg Capsule., 40 MG PO BIDAC, CAP 08/04/25 Metoclopramide HCl (Metoclopramide HCl) 10 Mg Tablet, 10 MG PO QIDP PRN for NAUSEA/VOMITING, TAB 08/04/25 Dicyclomine HCl (Dicyclomine HCl) 10 Mg Capsule, 2 CAP PO QIDP PRN for irritable bowel symptoms for 25 Days, #100 CAP 0 Refills 08/04/25 Hydroxyzine HCl (Hydroxyzine HCl) 25 Mg Tablet, 1 TAB PO TIDP PRN for anxiety for 30 Days, #60 TAB 0 Refills 08/04/25 Past Medical History Past Medical History: Other Additional Past Medical Hx: GASTRITIS, IRON DEF Surgical History: Other, Bariatric Surgery Surgical History Other: HERNIA Family History: Negative Social History: Negative History: Not Applicable LMP: Jul 18, 2025 RN Note Reviewed/Agreed w/PFSH: Yes Review of System Dictation Constitutional: Negative for fever,chills, and weight loss Eyes: Negative for injury, pain,redness, and discharge ENT: Negative for injury,pain or swelling Cardiovascular: Negative for chest pain, palpitations, and edema Respiratory: Negative for shortness of breath, cough, and wheezing, Abdomen/GI: Negative for abdominal pain, nausea, vomiting, diarrhea, and constipation Back: Negative for injury and pain : Negative for injury, bleeding and discharge MS/Extremity: Negative for injury and deformity Skin: Positive for rash, and areas of easy bruisability Neuro: Negative for headache, weakness, numbness, tingling, and seizure Psych: Negative for suicide ideation, homicidal ideation, and hallucinations Initial Vital Sign VS Vital Signs Date Time Temp Pulse Resp B/P (MAP) Pulse Ox O2 Delivery O2 Flow Rate FiO2 08/22/25 21:17 Room Air 08/22/25 21:28 98.2 94 24 127/79 100 0 21 Physical Exam Dictation General: awake, alert, NAD extreme weight loss Head/Face: Normocephalic, atraumatic Eyes: PERRL, EOMI, vision at baseline ENT: oral cavity clear, TMs clear, no signs of infection Neck: Trachea midline, supple, no nuchal rigidity Cardiovascular: RRR, normal S1/S2, No MRGs, no JVD Respiratory: CTAB, no respiratory distress, No rales or wheezes Abdomen: Soft, non-tender, non-distended, normal bowel sounds, no guarding or rebound. Skin: Warm, dry, normal turgor, I did not appreciate any obvious red spots on her legs or body. There are few areas of ecchymosis. MS/Extremity: Pulses equal, no cyanosis, neurovascular intact, FROM Neuro: COAx4, GCS 15, strength 5/5, CN 2-12 intact, normal cerebellar exam, normal gait, Psych: Normal behavior, mood, and affect tearful Extremities-no edema without any palpable cords, Homans sign is negative Results (Laboratory/Radiology) Laboratory/Radiology Laboratory Tests Test 08/22/25 22:02 White Blood Count 7.0 K/uL (4.8-10.8) Red Blood Count 4.43 MIL/uL (4.00-5.50) Hemoglobin 12.7 g/dL (12.0-16.0) Hematocrit 39.2 % (36-48) Mean Corpuscular Volume 88.5 fL (79-99) Mean Corpuscular Hemoglobin 28.7 pg (27.0-33.0) Mean Corpuscular Hemoglobin Concent 32.4 g/dL (32.0-36.0) Red Cell Distribution Width 18.1 % (11.0-15.5) H Platelet Count 267 K/uL (130-400) Mean Platelet Volume 9.5 fL (7.5-10.5) Immature Granulocyte % (Auto) 0.1 % (0-1) Neutrophils (%) (Auto) 31.7 % (40.0-77.0) L Lymphocytes (%) (Auto) 53.9 % (21.0-51.0) H Monocytes (%) (Auto) 9.3 % (3.0-13.0) Eosinophils (%) (Auto) 4.0 % (0.0-8.0) Basophils (%) (Auto) 1.0 % (0.0-5.0) Neutrophils # (Auto) 2.2 K/uL (1.8-7.7) Lymphocytes # (Auto) 3.8 K/uL (1.0-4.8) Monocytes # (Auto) 0.7 K/uL (0.1-1.0) Eosinophils # (Auto) 0.28 K/uL (0.00-0.70) Basophils # (Auto) 0.07 K/uL (0.00-0.20) Absolute Immature Granulocyte (auto 0.01 K/uL (0-1) Nucleated Red Blood Cells 0.0 % (0.0-0.19) Red Blood Cell Morphology See comments Sodium Level 137 mmol/L (136-145) Potassium Level 3.6 mmol/L (3.5-5.1) Chloride Level 104 mmol/L (101-111) Carbon Dioxide Level 25 mmol/L (21-32) Blood Urea Nitrogen 10 mg/dL (7-18) Creatinine 0.6 mg/dL (0.5-1.0) Glomerular Filtration Rate Calc 121 mL/min (>90) Random Glucose 62 mg/dL (70-105) L Total Calcium 9.0 mg/dL (8.5-10.1) Labs Reviewed?: Yes ED Course ED Course Orders Procedure Category Date Status Time Cbc With Differential LAB 08/22/25 Complete 21:48 Basic Metabolic Panel LAB 08/22/25 Complete 21:48 Vital Signs Date Time Temp Pulse Resp B/P (MAP) Pulse Ox O2 Delivery O2 Flow Rate FiO2 08/22/25 23:19 98.2 82 18 126/75 99 Room Air* 0 21 08/22/25 21:28 98.2 94 24 127/79 100 Room Air* 0 21 08/22/25 21:17 Room Air Medical Decision Making MDM Differential diagnosis: Allergic rash, skin manifestations of vitamin deficiencies, contact dermatitis, medication side effects. Hypoglycemia is likely related to small gastric reservoir, Late dumping syndrome, poor glycogen stores, hyperinsulinemia This is a 34-year-old female who presents to the emergency room with complaints of red spots on the lower extremities and at times hyperpigmented patches off and on. There is no itching. No fever chills or rigors no arthralgias. She started noticing these in the past few months. She stated that she underwent a bariatric gijqzvh-[id number]-bq-Y gastric bypass by Dr. Nevarez 14 months ago. Patient was 278 lb prior to surgery and has a lost significant amount of weight. She is also anemic and gets iron infusions. Dr. Owen has been concerned about her progressive weight loss and there was a discussion about possibly reversing her gastric bypass. Patient also has been hypoglycemic off and on. She indicated to me that she takes bariatric vitamins from a special website. She was also treated with steroids . Temperature 98.2 pulse 94 respirations 24 blood pressure 127/79 with a pulse oximetry of 100% on room air I reviewed labs CBC is with a normal limits BNP 7 showed a glucose of 62 Patient was given apple juice and a sandwich which she was able to eat all of it I updated her on all the labs and my concerns about overall bariatric surgery effects and complications and discussed possible differential diagnoses as listed above I also explained to her that she may have ecchymosis related to vitamin C deficiency in the skin manifestations could also be multiple vitamin deficiencies including B12, folate, vitamin-D, B1 and other minerals including calcium zinc copper selenium etcetera She was very appreciative of my discussion with her. I also prepared a small illustration for her and if hypoglycemia becomes a major issue consider octreotide. For now I encouraged her to eat every few hours and low sugar meal to avoid not only hyperinsulinemia but also to constantly provide calories. Rationale: Tests considered and ordered secondary to shared decision making include: Previous outside records reviewed: Old ER visits. Risk of complication and/or morbidity or mortality of patient management: None Medications-Per medication reconciliation Need for hospitalization: Patient does not meet criteria for hospitalization. Need for emergency major/minor surgery: No There are no social concerns with this patient. Prescription drug management Prescriptions will include symptomatic care Patient's prior external medical records from other ER visits were reviewed by me as indicated. Prior testing and results from previous visits were reviewed. Prior tests were taken into account with medical decision making and resource utilization, independent historian/historians were used to obtain complete medical history. I independently interpreted the test that were performed, results were reviewed by me and considered findings on radiology if ordered. Medical management and examination interpretation discussions were had by me with other qualified healthcare professionals as indicated for the patient's care. Problem List Problem List: (1) Rash and nonspecific skin eruption (2) Late dumping syndrome (3) Hypoglycemia after GI (gastrointestinal) surgery (4) Vitamin D deficiency DX & DISP Disposition: Discharge Departure Impression: Primary Impression: Rash and nonspecific skin eruption Additional Impressions: Vitamin D deficiency, Late dumping syndrome, Hypoglycemia after GI (gastrointestinal) surgery Condition: Stable Additional Instructions: Patient and the caregiver have been informed of all the diagnostic tests and the imaging conducted during the today's visit to the emergency room and has verbalized understanding of the results I have personally reviewed and interpreted all diagnostic exams performed here in the ER today as well as the vital signs documented by the nursing staff. The patient is now being discharged to home and should follow up with the primary care physician or the specialist as directed by the ER staff. Follow-up with primary care provider in 1 to 2 days. Take medications as directed here in the emergency room. Okay to continue home medications unless otherwise discussed during your visit in the emergency room today. Return to your nearest emergency room if symptoms worsen or if there is no improvement. Call 911 if you need immediate assistance. Take Tylenol or Motrin [id number] as needed and if no contraindications are present. Increase oral hydration. A wound culture or urine culture was ordered here in the emergency room department please follow-up with primary care provider and advise them to get repeat ports from our facility. If you had any Isidro wrap/splints that were applied here, please do not remove them until you see your primary care or specialty. [id number] Benadryl cream or hydrocortisone cream as needed. Reassured patient of the Raul-en-Y bariatric surgery effects. Referrals: WILDER OWEN MD (PCP) BRIGITTE QURESHI MD Aug 22, 2025 23:21
== END 2025-08-22 23:41 | disposition home or self-care (01) ==
LOC: EDH 21:14
DX: R21 Rash and other nonspecific skin eruption (principal); E55.9 Vitamin D deficiency, unspecified; E16.1 Other hypoglycemia; Z88.0 Allergy status to penicillin
CPT/HCPCS: 36415; 80048; 85025; 99283